=== PATIENT | female | born 1940 | race Caucasian/White ===

== ENCOUNTER 2021-07-01 09:55 | Day surgery (SDC) | payer MEDICARE ==
[~2021-07-01] VITALS: Ht 167.6 cm; Wt 59.9 kg
[2021-07-01] MEDS ORDERED: PROPOFOL 50 ML ONE (10:15)
[2021-07-01] MEDS ORDERED: CHLORHEXIDINE 15 ML UDC ONE (10:20)
[2021-07-01 10:28] VITALS: BP 142/73
[2021-07-01] MEDS ORDERED: LACTATED RINGERS 1,000 ML IV SCH (10:30)
[2021-07-01] MEDS ORDERED: CHLORHEXIDINE 15 ML UDC PO ONE (10:30)
[2021-07-01] MEDS ORDERED: ACET-1600 PO (10:32)
[2021-07-01] MEDS ORDERED: CALC-709 PO (10:32)
[2021-07-01] MEDS ORDERED: BORO1POW2 PO (10:32)
[2021-07-01] MEDS ORDERED: VIT1CAPS51 PO (10:32)
[2021-07-01] MEDS ORDERED: MAGN100T6 PO (10:32)
[2021-07-01] MEDS ORDERED: CHOL10003 PO (10:32)
[2021-07-01] MEDS ORDERED: FENTANYL PF 100 MCG/2ML IV PRN (11:00)
[2021-07-01] MEDS ORDERED: ONDANSETRON 2MG/ML, 2ML IVPush PRN (11:00)
== END 2021-07-01 12:55 | disposition home or self-care (01) ==
LOC: OUT 09:55
PROVIDERS: ATTEND Internal Medicine Geriatric Medicine
DX: K62.1 Rectal polyp (principal); K64.0 First degree hemorrhoids; Z20.822 Contact with and (suspected) exposure to COVID-19; Z79.899 Other long term (current) drug therapy; Z88.5 Allergy status to narcotic agent
CPT/HCPCS: 45341; 87635; 93005; J2704; J7120